=== PATIENT | male | born 1985 | race Two or more races ===

== ENCOUNTER → 2024-06-16 | Emergency (ER) | payer OTHER ==
[~2024-06-16] VITALS: Ht 172.7 cm; Wt 78.5 kg
[~2024-06-16] MED LIST: CARVEDILOL ER40 MG; FUROSEMIDE10 MG/1 M2
[2024-06-16 02:18] VITALS: BP 125/82; O2SAT 97
== END | disposition left against medical advice (07) ==
LOC: ER 02:00
DX: Z53.21 Procedure and treatment not carried out due to patient leaving prior to being seen by health care provider (principal)